=== PATIENT | male | born 1960 | race Caucasian/White ===

== ENCOUNTER 2018-05-13 06:57 | Emergency (ER) | payer OTHER ==
[~2018-05-13] VITALS: Ht 177.8 cm; Wt 131.5 kg
[~2018-05-13 06:57] MED LIST: ADVAIR 250-501 EACH INH; ADVAIR 500-501 EACH INH; ALBUTEROL2.5 MG/3 M INH; ALLEGRA-D 24 H1 EACH PO; ALLEGRA180 MG PO; CLINDAMYCIN HC300 MG PO; COMBIVENT RESPIM4 GM IH; CYCLOBENZAPRINE10 MG PO; FLONASE ALLERG9.9 ML; FLONASE ALLERG9.9 ML NS; GABAPENTIN100 MG PO; HYDROXYZINE HCL25 MG PO; IPRATROPIU0.2 MG/1 M INH; LEVAQUIN500 MG PO; LEVAQUIN750 MG PO; LOVASTATIN40 MG PO; MOBIC7.5 MG PO; MONTELUKAST SOD10 MG PO; NORCO 10-325 T1 EACH PO; OMEPRAZOLE20 MG PO; PANTOPRAZOLE SO40 MG PO; PERCOCET 5-3251 EACH PO; PREDNISONE10 MG PO; PREDNISONE20 MG PO; PRINIVIL10 MG PO; PROAIR HFA8.5 GM IH; PROMETHAZINE HC25 M1 PO; PROMETHAZINE-COD5 ML PO; PROTONIX40 MG PO; PROVENTIL HFA6.7 GM INH; QVAR7.3 G1 INH; TESSALON PERLE100 MG PO; ULTRAM50 MG PO; ZITHROMAX TRI-500 MG PO; ZOLOFT50 MG PO
[2018-05-13] MEDS ORDERED: PRAVASTATIN SOD40 MG (07:10)
[2018-05-13] MEDS ORDERED: PANTOPRAZOLE SO40 MG PO (07:10)
[2018-05-13] MEDS ORDERED: DILTIAZEM 24HR240 MG PO (07:11)
[2018-05-13] MEDS ORDERED: DILTIAZEM ER360 MG PO (07:12)
[2018-05-13] MEDS ORDERED: ULTRAM50 MG PO (08:54)
[2018-05-13] MEDS ORDERED: MELOXICAM7.5 MG PO (08:54)
== END 2018-05-13 09:27 | disposition home or self-care (01) ==
LOC: ED 06:57
PROC: 0M9P3ZZ Drainage of Left Knee Bursa and Ligament, Percutaneous Approach (ICD-10-PCS; principal; 2018-05-13)
DX: M25.462 Effusion, left knee (principal); K21.9 Gastro-esophageal reflux disease without esophagitis; J45.909 Unspecified asthma, uncomplicated; G47.30 Sleep apnea, unspecified; Z79.899 Other long term (current) drug therapy
CPT/HCPCS: 85032; 87070; 89051; 89060; 96372; 99283-25; J1885

== ENCOUNTER 2021-10-07 06:27 | Emergency (ER) | payer OTHER ==
[~2021-10-07] VITALS: Ht 177.8 cm; Wt 131.5 kg
[~2021-10-07 06:27] MED LIST changes: +DILTIAZEM 24HR240 MG PO; +DILTIAZEM ER360 MG PO; +MELOXICAM7.5 MG PO; +PRAVASTATIN SOD40 MG
[2021-10-07] MEDS ORDERED: NEURONTIN300 MG PO (06:55)
[2021-10-07] MEDS ORDERED: ASPIRIN81 MG PO (06:55)
== END 2021-10-07 07:42 | disposition home or self-care (01) ==
LOC: ED 06:27
DX: S01.311A Laceration without foreign body of right ear, initial encounter (principal); W26.8XXA Contact with other sharp object(s), not elsewhere classified, initial encounter; K21.9 Gastro-esophageal reflux disease without esophagitis; J45.909 Unspecified asthma, uncomplicated; G47.30 Sleep apnea, unspecified; I48.91 Unspecified atrial fibrillation; Z79.899 Other long term (current) drug therapy; Z79.82 Long term (current) use of aspirin; Z79.51 Long term (current) use of inhaled steroids
CPT/HCPCS: 12011; 99282-25

== ENCOUNTER 2024-09-16 05:44 | Day surgery (SDC) | payer OTHER ==
[2024-09-11 16:30] VITALS: BP 145/72
[~2024-09-16] VITALS: Ht 177.8 cm; Wt 134.1 kg
--- NOTE | ~2024-09-16 | OR ---
[facility] [address] [place], [place] [address] Draft DATE OF OPERATION: 09/16/2024 SURGEON: Melissa Hassan MD PREOPERATIVE DIAGNOSES: 1. Chronic calculous cholecystitis. 2. Morbid obesity. POSTOPERATIVE DIAGNOSES: 1. Chronic calculous cholecystitis. 2. Morbid obesity with extensive omental and fatty adhesions and fatty liver. PROCEDURES: 1. Laparoscopic cholecystectomy with intraoperative cholangiogram prolonged complicated difficulty. 2. Surgeon-directed fluoroscopy. ANESTHESIA: General endotracheal, Les Vela, SOCIAL WORK SPECIALIST and local 10 mL of 0.25% Marcaine with epinephrine. INDICATION: This 64-year-old white man is a patient of Dr. Arabella Connolly. He presented to the emergency room with severe and progressive right upper abdominal pain on September 02, 2024. He had noted right flank pain from the month prior. He was evaluated by Dr. Del Angel in the emergency room and considered to have a nontender, nondistended abdomen. A CT scan of the abdomen and pelvis was performed, which showed no ureteral calculi or hydronephrosis, but did show gallstones without evidence of acute cholecystitis. The on-call surgeon at that time deferred treatment pending outpatient evaluation. I saw him on September 04, 2024, and I have confirmed his other comorbidities including morbid obesity, history of cardiac surgery in childhood, sleep apnea requiring CPAP device, and gastroesophageal reflux. He appears to have chronic recurrent biliary colic symptoms related to his gallstones and is now admitted to undergo cholecystectomy preferred by laparoscopic approach. He has had umbilical hernia repair with implantation of mesh previously as well. The risk of bleeding, infection, bile duct injury, need for open procedure, failure to cure his symptoms, and so forth were all reviewed in detail. He understands and wished to proceed. FINDINGS: Indeed his abdominal wall were quite obese. He had previous umbilical hernia repair PATIENT NAME: NIDIA WHITTINGTON OPERATIVE REPORT DATE OF : 62 REPORT #: [id number] PHYSICIAN: MELISSA HASSAN MD PCP: ARABELLA CONNOLLY MD REPORT IS CONFIDENTIAL AND NOT TO BE RELEASED WITHOUT AUTHORIZATION [facility] [address] [place], [place] [address] Draft with some mesh noted in the site. A supraumbilical port site was used initially. The gallbladder itself was chronically inflamed, but not acutely inflamed. The liver had fatty infiltration, but no sign of cirrhotic changes. There were cysts or hemangiomas on the posterior aspect of the left lateral lobe of the liver. Given his significant obesity another trocar site was required with a fan retractor and the gallbladder was densely adhesed to the omental adhesions and peritoneal fat was quite thick as well. Ultimately, the cystic duct was identified. Cholangiogram performed showing no sign of filling defects or biliary defect and gallbladder was excised without problem. There were two black mulberry appearing gallstones and chronic inflammatory change of the mucosa of the gallbladder. There was no sign of neoplasm. He tolerated procedure well, though it was prolonged, complicated, and difficult due to the aforementioned factors. DESCRIPTION OF PROCEDURE: The patient was brought to the operating room and given a general endotracheal anesthetic. Preoperative antibiotic Ancef was given. Sequential compression device stockings used and heparin subcutaneously administered. The abdomen was clipped and prepared with a chlorhexidine solution and draped sterilely. Given his prior surgical intervention to the umbilicus with a circumumbilical incision, a supraumbilical incision was made a few centimeter from the umbilicus. Given his long torso, this was considered more optimal as well. The abdomen was entered using open Juan M cannula technique. Pneumoperitoneum was achieved to a level of 14 mmHg of carbon dioxide gas. Intra-abdominal inspection showed a fatty bulky liver. The gallbladder was obscured by omental tissue. Three additional trocars were placed in the usual configuration in the subxiphoid, right midclavicular, and right anterior axillary line. Withdrawal of the omentum obscuring the gallbladder was accomplished and the apex of the gallbladder identified and elevated. The bulky liver and relatively small gallbladder in comparison was notable. Ultimately, a fan retractor through a 5 mm port was placed to allow for better identification of the infundibulum. The gallbladder was elevated cephalad and using blunt and electrocautery dissection, omental adhesions to the undersurface of the gallbladder were freed. This allowed for sequential elevation of the gallbladder. The infundibulum was grasped and retracted laterally and using blunt and electrocautery dissection, the triangle of Calot was dissected free ultimately identifying the cystic duct, which was relatively small. Once the cystic duct was well identified, a clip was applied across the gallbladder cystic duct junction and a transverse choledochotomy made in the cystic duct allowing for egress of clear yellow bile and some stone debris in the cystic duct. An Gregory type cholangiocatheter system was used to provide intraoperative cholangiography. Using surgeon-directed fluoroscopy, free flow of contrast was noted in the biliary tree with prompt emptying into the duodenum. Retrograde filling to the proximal biliary tree was noted ultimately. There was no sign of biliary anomaly or other problem. The cystic duct was triply clipped and divided. The gallbladder was then dissected free in a retrograde fashion using PATIENT NAME: NIDIA WHITTINGTON OPERATIVE REPORT DATE OF : 62 REPORT #: [id number] PHYSICIAN: MELISSA HASSAN MD PCP: ARABELLA CONNOLLY MD REPORT IS CONFIDENTIAL AND NOT TO BE RELEASED WITHOUT AUTHORIZATION [facility] [address] [place], [place] [address] Draft electrocautery. Clips were applied to the cystic arterial branches as necessary. The gallbladder was ultimately excised and placed in endobag and extracted through the supraumbilical port site, opened on the back table and found to have two black 2 cm mulberry shaped gallstones. The mucosa was chronically inflamed. Irrigation was undertaken in subhepatic space. There was no sign of bile leak, bleeding, or other problems. A small decapsulation of the liver in the region of the apex of the gallbladder fossa was hemostatic. Nevertheless, Faby was applied to the undersurface of the gallbladder in that site. Excess irrigation fluid was suctioned free. The trocars were removed under direct visualization showing no sign of bleeding. The supraumbilical fascial incision was reapproximated with interrupted 0 Vicryl suture. 10 mL of 0.25% Marcaine with epinephrine was injected locally. The skin was then closed with interrupted 2-0 Vicryl. Steri-Strips were then applied. He was ultimately extubated and transferred to the recovery room in good condition having suffered no complications. Sponge, needle, and instrument counts reported as correct x3. MD SURYA Pompa/MONICAL /[id number] cc: Dr. Nilam Eagle MD Copies: ~ PATIENT NAME: NELSYNIDIA FRANCISCA OPERATIVE REPORT DATE OF : 62 REPORT #: [id number] PHYSICIAN: MELISSA HASSAN MD PCP: ARABELLA CONNOLLY MD REPORT IS CONFIDENTIAL AND NOT TO BE RELEASED WITHOUT AUTHORIZATION
[~2024-09-16 05:44] MED LIST changes: +ASPIRIN81 MG PO; +HYDROCODON-ACE1 EA10 PO; +LACTATED RINGER'S 1,000 ML IV SCH; +LISINOPRIL10 MG PO; +NEURONTIN300 MG PO; +ONDANSETRON ODT8 MG PO; +OZEMPIC2 MG/0.75; +PRAVASTATIN SOD10 MG PO
[2024-09-16 06:00] VITALS: BP 144/73
[2024-09-16] MEDS ORDERED: iopamidoL 30 ML VIAL ONE (06:44)
[2024-09-16] MEDS ORDERED: SODIUM CHLORIDE 0.9% 60 ML IV ONE (06:44)
[2024-09-16] MEDS ORDERED: IBLOOD GLUCOSE TEST STRIP 1 EA TEST VI PRN ×2 (07:00→08:30)
[2024-09-16] MEDS ORDERED: CEFAZOLIN SODIUM 3 GM/30 ML SYR IV SCH (07:00)
[2024-09-16] MEDS ORDERED: LIDOCAINE HCL 1% 5 ML SDV INJ ONE (07:00)
[2024-09-16] MEDS ORDERED: HEParin SOD (PORCINE) 5,000 UNIT/ML SDV SUB-Q SCH (07:00)
--- NOTE | 2024-09-16 07:15 | NUR ---
PT NOT AVAILABLE FOR VISIT. PROVIDED PRAYER.
[2024-09-16] MEDS ORDERED: ACETAMINOPHEN 1,000 MG/100 ML VIAL ONE (07:16)
[2024-09-16] MEDS ORDERED: DEXAMETHASONE SOD PHOS 4 MG/ML VIAL ONE (07:16)
[2024-09-16] MEDS ORDERED: ondansetron HCL 4 MG/2 ML VIAL ONE (07:16)
[2024-09-16] MEDS ORDERED: ROCURONIUM BROMIDE 50 MG/5 ML SYR ONE ×2 (07:16→08:43)
[2024-09-16] MEDS ORDERED: LIDOCAINE HCL 2% 5 ML SDV ONE (07:16)
[2024-09-16] MEDS ORDERED: SUGAMMADEX SODIUM 200 MG/2 ML ML ONE (07:16)
[2024-09-16] MEDS ORDERED: propofoL 200 MG/20 ML VIAL ONE (07:16)
[2024-09-16] MEDS ORDERED: SUCCINYLCHOLINE IN 0.9% NACL 200 MG/10 ML SYRINGE ONE (07:16)
[2024-09-16] MEDS ORDERED: KETOROLAC TROMETHAMINE 30 MG/ML VIAL ONE (07:16)
[2024-09-16] MEDS ORDERED: LIDOCAINE HCL 2% 20 MG/ML VIAL INJ ONE (07:17)
[2024-09-16] MEDS ORDERED: fentaNYL citrate 250 MCG/5 ML VIAL ONE (07:17)
--- NOTE | 2024-09-16 07:32 | NUR ---
VISITED DURING SPIRITUAL CARE ROUNDS. PT SUPPORTED BY IN ROOM. BOTH IN OVERALL GOOD SPIRITS; NO IMMEDIATE NEEDS. NAILER OPERATOR PROVIDED SUPPORTIVE PRESENCE, HOSPITALITY, PRAYER. PT AND EXPRESSED GRATITUDE.
[2024-09-16] MEDS ORDERED: ondansetron HCL 4 MG/2 ML VIAL IV PRN (08:30)
[2024-09-16] MEDS ORDERED: droPERidol 5 MG/2 ML VIAL IV PRN (08:30)
[2024-09-16] MEDS ORDERED: PROCHLORPERAZINE EDISYLATE 10 MG/2 ML VIAL IV PRN (08:30)
[2024-09-16] MEDS ORDERED: HYDROmorphone HCL 1 MG/ML SYR IV PRN (08:30)
[2024-09-16] MEDS ORDERED: fentaNYL citrate 50 MCG/ML SDV IV PRN (08:30)
[2024-09-16] MEDS ORDERED: NALOXONE HCL 0.4 MG SYR IV PRN ×2 (08:30→09:45)
[2024-09-16] MEDS ORDERED: SEVOFLURANE 250 ML BTL INH ONE (09:36)
--- NOTE | 2024-09-16 09:36 | NUR ---
09/16/24 0936 Nilam Banks 0918-PATIENT ARRIVED TO PACU ON 6L MASK RR EVEN. PATIENT REACTIVE TO VERBAL STIMULI OPENING EYES VERY DROWSY. SR HR 60'S LAP SITES TO ABDOMEN INTACT. PATIENT HAS HISTORY OF SLEEP APNEA PATIENT WILL BE APNEIC AND RN AROUSES PATIENT TO TAKE DEEP BREATHES. PATIENT FOLLOW INSTRUCTIONS. 0930-PATIENT AROUSING REPORTING "LOWER BACK PAIN TAKES TYLENOL AT HOME" REPORTS "PAIN 2". PILLOW GIVEN TO PATIENT TO HOLD WHEN COUGHING AND BRACE AGAINST. PATIENT RAISES ARMS ABOVE HEAD ENCOURAGED TO REST AMD NOT RUB EYES. 0932-PATIENT AWAKE PLACED ON RA 99% RR EVEN.
[2024-09-16] MEDS ORDERED: IBUPROFEN600 MG PO (09:39)
[2024-09-16] MEDS ORDERED: OXYCODON-ACETA1 EAC2 PO (09:39)
[2024-09-16] MEDS ORDERED: ACETAMINOPHEN500 MG PO (09:40)
[2024-09-16] MEDS ORDERED: IBUPROFEN 600 MG TAB PO PRN (09:45)
[2024-09-16] MEDS ORDERED: LACTATED RINGER'S 1,000 ML IV SCH (09:45)
[2024-09-16] MEDS ORDERED: ACETAMINOPHEN 500 MG TAB PO PRN (09:45)
[2024-09-16] MEDS ORDERED: OXYCODONE/APAP 7.5/325 TAB PO PRN (09:45)
[2024-09-16 10:14] VITALS: BP 115/60
--- NOTE | 2024-09-16 10:18 | NUR ---
1005 PT ARRIVED TO DAY SURGERY FROM PACU VIA STREACHER. PT ORIENTED BUT DROWSEY. BREATHING EQUAL AND UNLABORED. IV ASSESSED. PT REPORTS NO NAUSEA AT THIS TIME. PT REPORTS TOLERABLE 4/10 PAIN IN SURGICAL SITES. PT HAS ICE WATER AND PUDDING AT BEDSIDE, CALL LIGHT WITHIN REACH. PT REPORTS SLIGHT URGE TO URINATE, DISCUSSED WAITING BEFORE GETTING UP TO AMBULATE TO BATHROOM. PT UNDERSTANDING AT THIS TIME.
--- NOTE | 2024-09-16 10:52 | NUR ---
1049 PAIN MEDICATION GIVEN PER EMAR BEFORE GETTING PATIENT UP TO USE BATHROOM. PT REPORTS 4/10 PAIN.
[2024-09-16 11:03] VITALS: BP 119/61
--- NOTE | 2024-09-16 11:43 | NUR ---
1105 HOURLY ROUNDING DONE WITH PT. VITALS TAKEN. IV ASSESSED. PT REPORTS TOLERABLE 3/10 PAIN. 1120 PT ABLE TO AMBULATE TO BATHROOM AND VOID 250 MLS OF URINE. PT ABLE TO AMBULATE BACK TO ROOM. APPLIED BANDAIDS TO SURGICAL SITES DUE TO SOME SITES WEEPING. EXTRA BANDAIDS GIVEN TO PT. 1126 DISCHARGE INFORMATION GONE OVER WITH PATIENT. NO QUESTIONS AT THIS TIME. PRESCRIPTION WITH DISCHARGE INFORMATION, WORK NOTE ALSO IN PACKET. IV DISCONTINUED FOR DISCHARGE. 1132 PT DISCHARGED FROM DAY SURGERY VIA WHEELCHAIR TO THE FRONT OF THE HOSPITAL TO PT'S 'S CAR. PT HAS DISCHARGE INFORMATION IN HAND.
--- NOTE | 2024-09-18 16:44 | PATH ---
[facility] [address] [place], [place] [address] Signed SPECIMEN(S): A GALLBLADDER WITH STONES SPECIMEN SOURCE: A. GALLBLADDER WITH STONES CLINICAL HISTORY: Symptomatic gallstones, recurrent biliary colic FINAL PATHOLOGIC DIAGNOSIS: Gallbladder with stones: - Chronic calculous cholecystitis. JVR:juan MICROSCOPIC EXAMINATION: Histologic sections of all submitted blocks are examined by light microscopy. These findings, together with the gross examination, support the pathologic diagnosis. GROSS DESCRIPTION: The specimen, labeled and designated "Kirill, gallbladder with stones," is received in formalin and consists of Specimen: Previously opened gallbladder. Dimensions: 7.0 x 3.2 x 1.7 cm. Serosa: Yellow-saucedo and slightly roughened. Cystic Duct: Unobstructed, margin inked black and shaved. Calculi: Two black-brown bosselated calculi (1.6 x 1.3 x 1.1 cm, and 1.5 x 1.3 x 1.1 cm). Mucosa: Saucedo-green and velvety. Wall thickness: 0.2-0.6 cm. Lymph node: No pericystic lymph nodes are grossly identified. Additional: None. Cup Machine Operator sections are submitted in (A1). VB (under the direct supervision of a pathologist) The Gross Description was prepared using a voice recognition system. The report was reviewed for accuracy; however, sound-alike word errors, addition and/or deletions may occur. If there is any question about this report, please contact Client Services. PERFORMING LABORATORY: Technical component was performed by [facility], [address] [place] [id number] (CLIA# [id number]). Professional interpretation was PATIENT NAME: NIDIA WHITTINGTON PATHOLOGY DATE OF : 62 REPORT #: [id number] PHYSICIAN: [facility] PCP: KIERA CONNOLLY MD REPORT IS CONFIDENTIAL AND NOT TO BE RELEASED WITHOUT AUTHORIZATION [facility] [address] [place], [place] [address] Signed performed by [facility] [address] [place] [address] (CLIA#: [id number]). Diagnostician: Wilmer Syed MD Pathologist Electronically Signed 09/18/2024 Copies: ~ PATIENT NAME: NIDIA WHITTINGTON PATHOLOGY DATE OF : 62 REPORT #: [id number] PHYSICIAN: [facility] PCP: KIERA CONNOLLY MD REPORT IS CONFIDENTIAL AND NOT TO BE RELEASED WITHOUT AUTHORIZATION
== END 2024-09-16 11:32 | disposition home or self-care (01) ==
LOC: DS 05:44
PROVIDERS: ATTEND Surgery
PROC: BF101ZZ Fluoroscopy of Bile Ducts using Low Osmolar Contrast (ICD-10-PCS; 2024-09-16)
PROC: 0FT44ZZ Resection of Gallbladder, Percutaneous Endoscopic Approach (ICD-10-PCS; principal; 2024-09-16 07:30)
DX: K80.10 Calculus of gallbladder with chronic cholecystitis without obstruction (principal); K66.0 Peritoneal adhesions (postprocedural) (postinfection); K76.0 Fatty (change of) liver, not elsewhere classified; K76.89 Other specified diseases of liver; G47.30 Sleep apnea, unspecified; E66.01 Morbid (severe) obesity due to excess calories; Z68.41 Body mass index [BMI] 40.0-44.9, adult; Z79.2 Long term (current) use of antibiotics; Z79.899 Other long term (current) drug therapy
CPT/HCPCS: 00790; 74300; J0131; J0330; J0690; J1100; J1644; J1885; J2003; J2405; J2704; J3010; J3490; J7121; Q9967